=== PATIENT | female | born 1990 | race Caucasian/White ===

== ENCOUNTER 2020-01-21 16:36 | Emergency (ER) | payer OTHER, SELFPAY ==
[2020-01-21 16:53] VITALS: BP 138/83; PULSE 79; RESP 18; TEMP 36.7; O2SAT 97
--- NOTE | 2020-01-21 17:18 | ED.HA ---
HPI - Headache General Chief Complaint: Headache Stated Complaint: Head Ache Time Seen by Provider: 01/21/20 17:18 Source: patient Mode of arrival: ambulatory Limitations: no limitations History of Present Illness HPI Narrative: Malina Bender is a 29-year-old female with a history of migraine headache, anxiety, who came here for treatment of migraine headache. It is typical of her prior migraines she has had for 3 days says she gets nauseated when it reaches high intensity rates it now at around the 6-7 out of 10 Related Data Allergies Allergy/AdvReac Type Severity Reaction Status Date / Time MUSCLE RELAXER AdvReac Severe Siezure Uncoded 01/21/20 16:51 Review of Systems Review of Systems: Narrative: CONSTITUTIONAL: Denies fever, chills, sweats. EYES: Denies visual changes, redness, discharge. ENT: Denies rhinorrhea, congestion, sore throat, otalgia. CARDIOVASCULAR: Denies chest pain, palpitations, edema. RESPIRATORY: Denies dyspnea, wheezing, cough GASTROINTESTINAL: Denies abdominal pain, nausea, vomiting, diarrhea. GENITOURINARY: Denies dysuria, hematuria, abnormal discharge SKIN: Denies rash or itching. NEUROLOGIC: Denies numbness, or focal weakness. Has migraine headache PSYCHIATRIC: Denies anxiety or depression. [facility] Family History Family History Other No home medical services Social History Social History (Updated 01/21/20 @ 17:21 by Katie Fam CNP) Smoking status: Never smoker Living arrangements: with family Comments At time of signature, I agree with nursing past medical, surgical, social and family history. There is no relevant family history pertinent to the presenting complaint. Exam Narrative: Exam Narrative: GENERAL: This is a well-nourished, well-developed patient, in mild distress. HEAD: normocephalic, atraumatic. EYES: PERRL. Sclera clear/white. Vision is grossly intact. EARS: External ears normal, Hearing grossly intact. NOSE: External nose normal with no obvious nasal discharge, nares without redness, no rhinorrhea. THROAT: Mucous membranes moist, posterior pharynx clear. NECK: Neck supple, non-tender without lymphadenopathy, masses or thyromegaly. CARDIOVASCULAR: Regular rate and rhythm without murmurs, gallops, or rubs. RESPIRATORY: Clear to auscultation. Breath sounds equal bilaterally. No wheezes, rales, or rhonchi. GASTROINTESTINAL: Abdomen soft, non-tender, nondistended. Bowel sounds are active. No hepato-splenomegaly, or palpable masses. No guarding. SKIN: warm, intact with no suspicious lesions or rash, good texture and turgor. NEURO: awake, alert, and oriented to person, place and time. There were no obvious focal neurologic abnormalities. Steady gait; cranial nerves grossly negative EXTREMITIES: Normal range of motion. No edema. No calf tenderness. Negative Homans sign bilaterally. BACK: Nontender without deformity or crepitance. . Course Course Emergency Course: Given Toradol Benadryl- good result -will discharge Follow-up with PCP Vital Signs Vital signs: Vital Signs Temperature 98.1 F 01/21/20 16:53 Pulse Rate 79 01/21/20 16:53 Respiratory Rate 18 01/21/20 16:53 Blood Pressure 138/83 01/21/20 16:53 Pulse Oximetry 97 01/21/20 16:53 Temperature 98.1 F 01/21/20 16:53 Pulse Rate 79 01/21/20 16:53 Respiratory Rate 18 01/21/20 16:53 Blood Pressure 138/83 01/21/20 16:53 Pulse Oximetry 97 01/21/20 16:53 MDM - Headache Differential Diagnosis Differential diagnosis: Likely migraine, headache and other Discharge Plan Discharge Clinical Impression: Migraine Qualifiers: Migraine type: without aura Status migrainosus presence: without status migrainosus Intractability: not intractable Qualified Code(s): G43.009 - Migraine without aura, not intractable, without status migrainosus Patient Disposition: Home, Self-Care Condition: Stable Instructions: Acute Headac
[2020-01-21] MEDS: KETOROLAC (*BKC) 60 MG/2 ML VIAL IM (17:29)
--- NOTE | 2020-01-21 18:01 | PC.NURSE ---
Pt reports that the medications did take edge off and she is ready to go home.
== END 2020-01-21 18:40 | disposition home or self-care (01) ==
PROVIDERS: Emergency Provider Nurse Practitioner
DX: G43.009 Migraine without aura, not intractable, without status migrainosus (principal)
CPT/HCPCS: 96372; 99203; A9270; G0463; J1885